=== PATIENT | male | born 1960 | race Caucasian/White ===

== ENCOUNTER 2021-08-20 12:06 | Outpatient (CLI) | payer OTHER, SELFPAY ==
[2021-08-20 19:08] LABS: Hematocrit 47.3 % (42.0-52.0); Hemoglobin 15.6 g/dL (14.0-18.0); Mean Corpuscular Volume 96.9 fl (80-100); Mean Platelet Volume 11.6 fl (7.4-10.4); Platelet Count Result 168 k/mm3 (150-375); Red Blood Count 4.88 M/mm3 (4.6-6.20); Red Cell Distribution Width 13.2 % (11.5-14.5); White Blood Count 6.1 K/mm3 (4.5-10.0)
[2021-08-20 19:29] LABS: Amphetamine Screen Urine Negative (Negative); Barbiturate Screen Urine Negative (Negative); Benzodiazepines Screen Urine Negative (Negative); Cannabinoid Screen Urine Negative (Negative); Cocaine Screen Urine Negative (Negative); Methadone Screen Urine Negative (Negative); Opiate Screen Urine Negative (Negative); Phencyclidine Screen Urine Negative (Negative)
[2021-08-20 20:45] LABS: Alanine Aminotransferase 23 U/L (6-50); Albumin Level 4.4 g/dL (3.5-5.1); Alkaline Phosphatase 57 U/L (38-126); Anion Gap 5 mmol/L (8-16); Aspartate Amino Transferase 28 U/L (17-59); Blood Urea Nitrogen 12 mg/dL (9-20); Calcium 9.2 mg/dL (8.4-10.2); Carbon Dioxide 24 mmol/L (22-30); Chloride 108 mmol/L (98-107); Cholesterol 180 mg/dL (0-200); Estimated Glomerular Filt Rate > 60; Glucose 94 mg/dL (65-110); HDL Direct 63 mg/dL; Potassium 4.9 mmol/L (3.4-5.0); Sodium 137 mmol/L (137-145); Triglycerides 46 mg/dL (<150)
[2021-08-20 20:56] LABS: LDL Cholesterol Direct 106 mg/dL
[2021-08-20 21:16] LABS: Prostate Specific Antigen 1.8 ng/mL (< OR = 4.0)
== END 2021-08-20 12:07 | disposition home or self-care (01) ==
PROVIDERS: PCP Family Medicine; Visit Provider Family Medicine
DX: Z00.00 Encounter for general adult medical examination without abnormal findings (principal); M19.90 Unspecified osteoarthritis, unspecified site; M54.50 Low back pain, unspecified
CPT/HCPCS: 36415; 80053; 80061; 80307; 84153; 85027; G0103

== ENCOUNTER 2021-12-25 14:52 | Outpatient (CLI) | payer BC, OTHER, SELFPAY ==
--- NOTE | ~2021-12-25 | CT_ITS ---
EXAMINATION:CT lung screening DATE: 12/25/2021 15:08 INDICATION: Personal history of nicotine dependence. Current smoker with 40 pack year history. TECHNIQUE: Computed tomography (CT) of the chest was performed without intravenous contrast. Automate d exposure control and iterative reconstruction technique were employed. The dose-length product (DLP ) was 71.43 mGy-cm. COMPARISON: None. FINDINGS: There is mild emphysema. A calcified right lung nodule and calcified mediastinal lymph node s are consistent with old granulomatous disease. There is mild atelectasis in right lower lobe. No pl eural effusion. The heart size is normal. There are coronary artery calcifications. No pericardial ef fusion. There are surgical clips right posterior chest wall where there are rib deformities. There is a hemangioma in T3 vertebral body. There is moderate lower thoracic spondylosis. There is mild chron ic anterior wedging of multiple lower thoracic vertebral bodies. IMPRESSION: 1. Lung-RADS category 1: Negative. Continue annual screening with noncontrast low-dose chest CT in 12 months. Reviewed, dictated and finalized at location A. IMPRESSION: 1. Lung-RADS category 1: Negative. Continue annual screening with noncontrast l ow-dose chest CT in 12 months.
== END 2021-12-25 14:53 | disposition home or self-care (01) ==
PROVIDERS: PCP Family Medicine; Visit Provider Family Medicine
DX: Z12.2 Encounter for screening for malignant neoplasm of respiratory organs (principal); Z87.891 Personal history of nicotine dependence
CPT/HCPCS: 71271

== ENCOUNTER 2023-01-25 10:58 | Outpatient (CLI) | payer OTHER, SELFPAY ==
[2023-01-25 18:40] LABS: Alanine Aminotransferase 41 U/L (6-50); Albumin Level 4.7 g/dL (3.5-5.1); Alkaline Phosphatase 53 U/L (38-126); Anion Gap 7 mmol/L (8-16); Aspartate Amino Transferase 55 U/L (17-59); Bilirubin,Total 0.8 mg/dL (0.2-1.3); Blood Urea Nitrogen 14 mg/dL (9-20); Calcium 10.4 mg/dL (8.4-10.2); Carbon Dioxide 29 mmol/L (22-30); Chloride 102 mmol/L (98-107); Cholesterol 197 mg/dL (0-200); Estimated Glomerular Filt Rate > 60; Glucose 106 mg/dL (65-110); HDL Direct 58 mg/dL; Potassium 4.2 mmol/L (3.4-5.0); Sodium 138 mmol/L (137-145); Triglycerides 57 mg/dL (<150)
[2023-01-25 18:51] LABS: LDL Cholesterol Direct 113 mg/dL
[2023-01-25 19:08] LABS: Prostate Specific Antigen 1.9 ng/mL (< OR = 4.0)
[2023-01-25 19:30] LABS: Basophils Absolute Auto 0.1 K/mm3 (0.0-0.1); Basophils Percent Auto 1.1 % (0.2-1.2); Eosinophils Absolute Auto 0.1 K/mm3 (0-0.3); Eosinophils Percent Auto 2.6 % (0-4.4); Hematocrit 46.2 % (42.0-52.0); Lymphocytes Percent Auto 38.4 % (18.3-44.2); Mean Corpuscular HGB Conc 32.5 g/dl (32-36); Mean Corpuscular Hemoglobin 33.1 pg (26-34); Mean Platelet Volume 12.3 fl (7.4-10.4); Monocytes Absolute Auto 0.4 K/mm3 (0.1-0.6); Monocytes Percent Auto 8.5 % (2.6-8.5); Neutrophils Absolute Auto 2.3 K/mm3 (1.3-6.7); Neutrophils Percent Auto 49.4 % (45.5-73.1); Platelet Count Result 170 k/mm3 (150-375); Red Blood Count 4.53 M/mm3 (4.6-6.20); Red Cell Distribution Width 12.3 % (11.5-14.5); White Blood Count 4.7 K/mm3 (4.5-10.0)
== END 2023-01-25 10:59 | disposition home or self-care (01) ==
PROVIDERS: PCP Family Medicine; Visit Provider Family Medicine
DX: I10 Essential (primary) hypertension (principal); E78.5 Hyperlipidemia, unspecified; F10.10 Alcohol abuse, uncomplicated; Z00.00 Encounter for general adult medical examination without abnormal findings; Z12.5 Encounter for screening for malignant neoplasm of prostate
CPT/HCPCS: 36415; 80053; 80061; 84153; 85025; G0103

== ENCOUNTER 2024-10-15 10:40 | Emergency (ER) | payer OTHER, SELFPAY ==
[2024-10-15 10:48] VITALS: BP 123/91; PULSE 105; RESP 20; TEMP 37; O2SAT 99
--- NOTE | 2024-10-15 10:49 | ED.GENADULT ---
HPI - General Adult General Chief complaint: Skin/Abscess/Foreign Body Stated complaint: Body Pain/Rash/Weak Feeling in Legs Time Seen by Provider: 10/15/24 11:28 Source: patient, RN notes reviewed and old records reviewed Mode of arrival: ambulatory Limitations: no limitations History of Present Illness HPI narrative: 64-year-old male presents to the [facility] with complaints of several weeks of generalized muscle pain, rash, feeling weak in his legs especially the left ankle. Reports that he has seen his primary care provider who did x-rays. Reports lab work done however unsure of results. Patient denies any fevers. Reports symptoms have been going on for several weeks and is gradually getting worse. patient reports that he was at [facility] just prior to arrival and states that he did not want a wait, came to our urgent care hoping for further evaluation, testing and treatment Onset (ago): week(s) Treatments prior to arrival: none Related Data Home Medications ?Medication ?Instructions ?Recorded ?Confirmed ?Last Taken ?Type pravastatin 80 mg tablet 80 mg PO DAILY 08/03/21 02/15/23 Unknown History Allergies Allergy/AdvReac Type Severity Reaction Status Date / Time No Known Allergies Allergy Unverified 02/15/23 07:32 Review of Systems Review of Systems: All systems reviewed & are unremarkable except as noted in HPI and below Constitutional: Constitutional: Reports as per HPI, Reports fatigue, Reports malaise and Reports weakness ENT: Reports system reviewed and no additional complaints, except as documented Cardiovascular: Cardiovascular: Reports no additional cardiovascular complaints, Denies chest pain and Denies dyspnea Respiratory: Respiratory: Reports no additional respiratory complaints, Denies chest congestion, Denies cough and Denies dyspnea Musculoskeletal: Musculoskeletal: Reports as per HPI Integumentary/Breasts: Skin/Breast: Reports as per HPI and Reports rash PMFSH Past Medical History Medical History Arthritis Family History Family History Mother Cancer Ovarian Father Cancer Prostrate Son Cancer Diabetes mellitus Social History Social History Smoking status: Current every day smoker Other substance usage details: Recreational drugs yes Lack of Transportation: No Lack of Food: Never True Current Housing: I Have Housing Concerned About Future Housing: No Difficulty Paying Gas/Electric Bills: No Difficulty Paying for Meds: No Currently Unemployed: No Education: Associate Degree Difficulty w/ Childcare or Family Care: No Living arrangements: with friend(s) Additional occupation/education comments: [employer] Gender identity (if verbalized by the patient): Male Agree to blood products: Yes Comments At the time of my signature, I reviewed and agree with the nursing past medical, surgical, social, and family history. There is no relevant family history pertinent to the patient complaint. Exam Const: General: cooperative, no acute distress, well developed, alert, ill appearing, uncomfortable and well nourished Nutritional Appearance: thin Orientation/consciousness: patient oriented x3 Limitations: no limitations HENMT: Head: normal to inspection Eyes: General: appearance normal, both eyes and all related structures Alignment and Position: alignment normal Neck: Neck: normal visual inspection, full ROM, no lymphadenopathy and no meningeal signs Chest: Chest palpation & inspection: normal inspection of the chest Resp: Effort & Inspection: normal respiratory effort and able to speak in complete sentences Cardio: Rate: tachycardic Skin: General skin exam: rashes Rashes: rashes noted ( Generalized) Neuro: General: patient oriented x3, gait normal, moves all extremities and no meningeal signs Cognition (Neuro): normal cognition Speech: normal speech Gait exam (Neuro): Normal gait present Extrem: General: normal to inspection, full ROM, capillary refill normal and normal gait Psych: Appearance: grossly normal and well kempt Mental Status: mental status grossly normal Speech and movement: Normal speech and movement present and Clear speech present Affect: normal affect Attitude: cooperative Course Course Level of Care: Express Care Visit Vital Signs Vital signs: Vital Signs Temperature 98.6 F 10/15/24 10:48 Pulse Rate 105 H 10/15/24 10:48 Respiratory Rate 20 10/15/24 10:48 Blood Pressure 123/91 H 10/15/24 10:48 Pulse Oximetry 99 10/15/24 10:48 Oxygen Delivery Room Air 10/15/24 10:48 Temperature 98.6 F 10/15/24 10:48 Pulse Rate 105 H 10/15/24 10:48 Respiratory Rate 20 10/15/24 10:48 Blood Pressure 123/91 H 10/15/24 10:48 Pulse Oximetry 99 10/15/24 10:48 Oxygen Delivery Room Air 10/15/24 10:48 Reviewed Medical Decision Making MDM Narrative Medical decision making narrative: patient sitting in exam room. Patient is nontoxic but appears uncomfortable. Vitals are stable. Patient presents with several weeks of generalized muscle pain, weakness as well as a rash that covers his body. Concerns for multiple issues with this patient, unable to see previous labs or x-rays. Discussed transfer to ER which patient states he will think about it discussed we are not able to do any type of lab work. Patient got up and walked out Discharge instructions reviewed with patient, as well as provided in writing per nursing staff. The instructions also include specific and strict return/GO TO THE ER as well as f/u information. All questions have been answered, and the patient deny any further questions with discharge and discharge plan. Some parts of this dictation were generated by voice recognition software and may contain typographical and/or grammatical inaccuracies. Differential Diagnosis Differential Diagnosis: tick-borne illness, viral, kidney dysfunction, liver dysfunction Medical Records Medical records reviewed: Yes I reviewed the external patient's medical records. Vital Signs Vital Signs: Vital Signs Temperature 98.6 F 10/15/24 10:48 Pulse Rate 105 H 10/15/24 10:48 Respiratory Rate 20 10/15/24 10:48 Blood Pressure 123/91 H 10/15/24 10:48 Pulse Oximetry 99 10/15/24 10:48 Oxygen Delivery Room Air 10/15/24 10:48 Temperature 98.6 F 10/15/24 10:48 Pulse Rate 105 H 10/15/24 10:48 Respiratory Rate 20 10/15/24 10:48 Blood Pressure 123/91 H 10/15/24 10:48 Pulse Oximetry 99 10/15/24 10:48 Oxygen Delivery Room Air 10/15/24 10:48 Reviewed Lab Data Lab results reviewed: Yes I reviewed the patient's lab results. Labs: Reviewed Critical Care Time Critical Care Time Critical Care Time: No Discharge Plan Discharge Clinical Impression: Weakness, Rash Patient Disposition: Elopement After Seen by Prov Patient Language: Mongolian Prescriptions: No Action pravastatin 80 mg tablet 80 mg PO DAILY tramadol 50 mg tablet 50 mg PO Q6H PRN (Reason: pain) Qty: 60 0RF tadalafil [Cialis] 10 mg tablet 10 mg PO DAILY PRN (Reason: sexual activity) Qty: 30 1RF Rx Instructions: administer approximately 30min before sexual activity; do not use more than 1 dose per 24hrs albuterol sulfate 90 mcg/actuation HFA aerosol inhaler 1 inh inhalation Q4H PRN (Reason: shortness of breath or wheezing) Qty: 8.5 1RF (DME) BreatheRite Spacer-Mask,Adult Spacer See Rx Instructions .Route Qty: 1 0RF Rx Instructions: As directed valsartan-hydrochlorothiazide 160-12.5 mg tablet 1 tablet PO DAILY Qty: 90 1RF Advair HFA 230-21 mcg/actuation HFA aerosol inhaler See Rx Instructions .ROUTE .COMPLEX Qty: 12 1RF Dose Instruction: 2 PUFF INHALED TWICE A DAY ADMINISTER WITH SPACER Rx Instructions: 2 PUFF INHALED TWICE A DAY ADMINISTER WITH SPACER Follow-up/Referrals: UNKNOWN,DOCTOR [Primary Care Provider] -
--- OUTSIDE RECORDS SUMMARY | 2024-10-15 10:52 | XMS_ITS | Clinical Summary ---
Author Organization [facility] Address [address] [place] [address] Phone Care Team Providers Care Intermediate Accountant Name Role Phone Unavailable Primary Care Provider Unavailabl e Allergies No known active allergies Medications Blood Pressure KitIndications:Hype rtension, unspecified type 1 Kit by Does not apply route 2 times daily. 1 Each 8 Active rOPINIRole (REQUIP) 0.5 MG Tablet Take 1 Tab by mouth nightly. 90 Tab 2 0 Active cetirizine (ZyrTEC) 10 MG TabletIndications:C hronic maxillary sinusitis Take 1 Tablet by mouth daily. 90 Tablet 3 1 Active pravastatin (PRAVACHOL) 80 MG TabletIndications:H ypertension, unspecified type,Hyperlipidemia , unspecified hyperlipidemia type TAKE 1 TABLET BY MOUTH EVERY DAY 90 Tablet 1 1 Active ibuprofen (MOTRIN) 600 MG Tablet Take 1 Tablet by mouth every 6 hours as needed for Moderate or more severe pain or Fever. 60 Tablet 1 Active traMADol (ULTRAM) 50 MG TabletIndications:C hronic midline low back pain without sciatica Take 1 Tablet by mouth every 6 hours as needed for Moderate or more severe pain. 60 Tablet 1 Active valsartan (DIOVAN) 80 MG TabletIndications:H ypertension, unspecified type TAKE 1 TABLET BY MOUTH EVERY DAY 90 Tablet 1 2 Active Active Problems No known active problems Immunizations Immunization Administration Dates Next Due Td (Adult) 07/29/2009 Family History Medical History Relation Name Comments Heart Attack Father Cancer Mother Relation Name Status Comments Father Mother Social History Tobacco Use Types Packs/Day Years Used Date Smoking Tobacco: Every Day Cigarettes Smokeless Tobacco: Never Tobacco Cessation:Ready to Q uit: No; Counseling Given: Yes Alcohol Use Standard Drinks/Week Comments Yes 4 (1 standard drink = 0.6 oz pur e alcohol) daily PHQ-2 Answer Date Recorded Total Score - Questions 1-9 0 05/2020 Sex and Gender Information Value Date Recorded Sex Assigned at Not on file Legal Sex Male 12:16 AM CDT Gender Identity Not on file Sexual Orientation Not on file Last Filed Vital Signs Vital Sign Reading Time Taken Comments Blood Pressure 124/77 03/09/2021 2:30 PM DRIVER LICENSE EXAMINER Pulse 85 03/09/2021 2:30 PM DRIVER LICENSE EXAMINER Temperature 36.4 C (97.6 F) 03/09/2021 1:30 PM DRIVER LICENSE EXAMINER Respiratory Rate 16 03/09/2021 1:32 PM DRIVER LICENSE EXAMINER Oxygen Saturation 95% 03/09/2021 2:30 PM DRIVER LICENSE EXAMINER Inhaled Oxygen Concentration - - Weight 68 kg (150 lb) 03/09/2021 1:30 PM DRIVER LICENSE EXAMINER Height 175.3 cm (5' 9) 03/09/2021 1:30 PM DRIVER LICENSE EXAMINER Body Mass Index 22.15 03/09/2021 1:30 PM DRIVER LICENSE EXAMINER Plan of Treatment Health Maintenance Due Date Last Done Comments Hepatitis C Virus (HCV) Screening 1960 TdaP Immunization 1960 Cologuard 01/04/2005 Colonoscopy 01/04/2005 Colorectal Cancer Screening 01/04/2005 Immunochemical Fecal Occult Blood 01/04/2005 Pneumococcal Immunization (5 0+ years) (1 of 1 - PCV) 01/04/2010 Zoster Immunization (1 of 2) 01/04/2010 SARS-COV-2 Immunization (1 - 2023- season) 2023 Influenza Immunization (Seas on Ended) 2024 Respiratory Syncytial Virus (RSV) Immunization (Adult) (1 - 1-dose 75+ series) 01/04/2035 PSA Discussion Completed 10/16/2020 Hepatitis B Immunization Aged Out No longer eligible based on patient's age to complete this topic Human Papillomavirus (HPV) Immunization Aged Out No longer eligible b ased on patient's age to complete this topic Meningococcal Immunization (ACWY) Aged Out No longer eligible based on patient's age to complete this topic Rotavirus Immunization Aged Out No lo nger eligible based on patient's age to complete this topic Procedures Procedure Name Priority Date/Time Associated Diagnosis Comments PSA SCREEN Today 10/16/2020 1:44 PM CDT Screening for prostate cancer from Last 3 Months or Most Recently Relevant to Health Maintenance Results * PSA SCREEN (10/16/2020 1:44 PM CDT) PSA SCREEN, TOTAL 1.79 <=4.00 ng/mL 10/16/2020 2:37 PM CDT [facility] Blood Venipuncture / Unknown 10/16/2020 1:44 PM CDT 10/16/2020 2:08 PM CDT Narrative [facility] - 10/16/2020 2:37 PM CDT PSA NOTE: The PSA value should be used in conjunction with information available from clinical evaluation and other diagnostic procedures. Luis Manuel Kendrick MD CHEMISTRY ORDERABLES Final Re sult [facility] [address] [place] [address] from Last 3 Months or Most Recently Relevant to Health Maintenance Insurance [employer]
--- OUTSIDE RECORDS SUMMARY | 2024-10-15 10:52 | XMS_ITS | Encounter Summary ---
Author Organization [facility] Address [address] [place] [address] Phone Care Team Providers Care Mechanical Press Operator Name Role Phone Luis Manuel Kendrick MD Primary Care Provider [phone] Reason for Visit * Reason Onset Date Comments Prior Authorization 02/24/2021 Encounter Details Date Type Department Care Team (Late st Contact Info) Description 02/24/2021 Telephone [facility] Outpatient [address] [place] [address] Luis Manuel Kendrick MD [address] [address] Prior Authorization Social History Tobacco Use Types Packs/Day Years Used Date Smoking Tobacco: Every Day Cigarettes Smokeless Tobacco: Never Alcohol Use Standard Drinks/Week Comments Yes 0 (1 standard drink = 0.6 oz pur e alcohol) Occasional PHQ-2 Answer Date Recorded Total Score - Questions 1-9 0 05/2020 Sex and Gender Information Value Date Recorded Sex Assigned at Not on file Legal Sex Male 12:16 AM CDT Gender Identity Not on file Sexual Orientation Not on file COVID-19 Exposure Response Date Recorded In the last month, have you been in contact with someone who was confirmed or suspected to have Coronavirus / COVID-19? No / Unsure 02/16/2021 3:25 PM ACQUISITION CONSULTANT documented as of this encounter Miscellaneous Notes * Telephone Encounter - [place] - 02/24/2021 3:20 PM CST Auth Denied-P2P offered Ordering Provider: Internal Appointment Info: Clinic: [facility] Provider: MARIPOSA Juárez Date/Time: Tuesday 10:30 AM Payor + Plan: [employer] - [employer] CPT/Test: 82708 and 83323 Authorization denied through: [employer] Reason for denial: [id number]- Based on [employer] Head [facility] Guidelines Section(s): HD 23.1 Dizziness/Vertigo and 1.0 General Guidelines, we cannot approve this request. Your records show that you have dizzy spells. The request cannot be approved because: We did not receive results of a full workup for your signs and/or symptoms that showed a reason therequested study is needed. A full workup should include the following information. -Details about your symptoms. -Results of testing of your blood pressure while sitting, lying, and standing (orthostatic blood pressure). -Results of hearing tests. -Results of gait (your pattern of walking) testing.- Results of positional testing (Kent-Hallpike maneuver). -Results of eye motion testing to check fornystagmus (fast eye motions that you cannot control). - Results of testing for a head thrust sign (test to see if you can keep your eyes locked on an item after moving your head abruptly). -Results oftesting to see if your eyes move upward but apart (in opposite directions). -Results of vision testing. Your records do not show documentation of physical exam results that included a detailed nervous system exam suggestive of SNOW RANGER (central nervous system) disease. Your nervous system consists of a network of nerve cells and fibers that send nerve messages between parts of your body. SNOW RANGER is the part of your nervous system that involves your spinal cord and brain. [address]- Based on [employer] Spine Imaging Guidelines Section(s): SP 15.1 Greater than Six Months Post-Operative and 1.0 General Guidelines, we cannot approve this request. Your records show that you have had a repair (surgery) to treat a problem with your spine. The request cannot be approved because: You must have severe pain (at least 9 out of 10 on a pain scale) going down a limb(s). Your records do not show that you have significant loss of function at home or at work. Your records do not show that you have pain that did not respond to at least seven days of doctor prescribed treatment. One of the following must be met. -Your doctor is planning an injection into the space just outsidethe membrane that surrounds your spinal cord and spinal fluid. -Your doctor is planning an urgent surgery to your spine. -You need an urgent referral or consult from a doctor that treats spine problems (metalworking specialist). Your records do not show physical exam results that show a reason this study is needed. This exam should include a detailed nervous system (a network of nerves that send nerve messages between parts of your body) exam. Your records did not include a detailed history that shows this study is needed. You must show that you failed to improve following treatment ordered by your doctor. There is no record of follow-up contact (in person, by phone, by mail, or by messaging) with your doctor after completing treatment that failed to improve your symptoms. Add'l Steps Taken (Pt Notified, Reached out to Provider, etc.): Sent telephone encounter Peer to Peer review offered by Payer: Yes Peer to Peer review expires: 02/27/21 Case #: [id number] Phone #: [phone] Physician: Luis Manuel Louie. Notified? Yes Notification Made to Patient: Yes Call type: Outbound Contact Made: Left Message Reason for Call: Authorization Status/Issue Pt called back and cancelled appts ISITION CONSULTANT documented in this encounter Plan of Treatment Not on file documented as of this encounter Visit Diagnoses Not on filedocumented in this encounter Additional Health Concerns Assessment Noted Time PHQ-9 Depression Total Score: 0 02/11/20 21 5:00 PM CDT documented as of this encounter Care Teams Mechanical Press Operator Relationship Specialty Start Date End Date Luis Manuel Kendrick MD #[address] [address] PCP - General Family Medicine 06/19/18 05/28/24 documented as of this encounter
--- OUTSIDE RECORDS SUMMARY | 2024-10-15 10:52 | XMS_ITS | Encounter Summary ---
Author Organization [facility] Address [address] [place] [place] [address] Phone Care Team Providers Care News Copy Editor Name Role Phone Luis Manuel Kendrick MD Primary Care Provider [phone] Reason for Visit * Reason Comments Medication Refill Encounter Details Date Type Department Care Team (Late st Contact Info) Description 08/24/2020 [facility] [place] [id number] Luisa Hughes APRN, STUDENT MINISTRY PASTOR [address] [address] Medication Refill Social History Tobacco Use Types Packs/Day Years Used Date Smoking Tobacco: Every Day Cigarettes Smokeless Tobacco: Never PHQ-2 Answer Date Recorded Total Score - Questions 1-9 0 /0 11/2020 Sex and Gender Information Value Date Recorded Sex Assigned at Not on file Legal Sex Male 12:16 AM CDT Gender Identity Not on file Sexual Orientation Not on file documented as of this encounter Miscellaneous Notes * Telephone Encounter - Gisela May RN - 08/25/2020 12:33 PM CDT Medication failed the protocol, provider to review and approve the medication order if appropriate. Requested Prescriptions Pending Prescriptions Disp Refills pravastatin (PRAVACHOL) 80 MG Tablet [Pharmacy Med Name: PRAVASTATIN SODIUM 80 MG TAB] 90 Tablet 1 Sig: TAKE 1 TABLET BY MOUTH EVERY DAY Hmg CoA Reductase Inhibitors Protocol Failed - 08/24/2020 9:13 AM Failed - Lipid panel in past 12 months LDL Date Value Ref Range Status 12/19/2018 83 5 - 130 mg/dL Final HDL CHOLESTEROL Date Value Ref Range Status 12/19/2018 51.3 >40 mg/dL Final CHOLESTEROL Date Value Ref Range Status 12/19/2018 149 <=200 mg/dL Final TRIGLYCERIDES Date Value Ref Range Status 12/19/2018 75 <150 mg/dL Final VLDL Date Value Ref Range Status 12/19/2018 15 5 - 55 mg/dL Final CHOL/HDL RATIO Date Value Ref Range Status 12/19/2018 2.9 0.0 - 4.4 Final NON-HDL CHOLESTEROL Date Value Ref Range Status 12/19/2018 97.7 <130 mg/dL Final Passed - Visit with relevant provider in past 12 months or upcoming 90 days Recent Visits Date Type Provider Dept 05/19/20 Office Visit Luisa Hughes APN, STUDENT MINISTRY PASTOR [facility] 03/18/20 Office Visit Luis Manuel Kendrick MD [facility] 09/11/19 Office Visit Luis Manuel Kendrick MD [facility] Showing recent visits within past 365 days and meeting all other requirements Future Appointments No visits were found meeting these conditions. Showing future appointments within next 90 days and meeting all other requirements valsartan (DIOVAN) 80 MG Tablet [Pharmacy Med Name: VALSARTAN 80 MG TABLET] 90 Tablet 1 Sig: TAKE 1 TABLET BY MOUTH EVERY DAY ARB Protocol Failed - 08/24/2020 9:13 AM Failed - Normal serum creatinine on file within the past year CREATININE, BLOOD Date Value Ref Range Status 12/19/2018 0.84 0.80 - 1.30 mg/dL Final Failed - Normal serum potassium on file within the past year POTASSIUM Date Value Ref Range Status 12/19/2018 4.5 3.5 - 5.1 mmol/L Final Passed - BP on record in the past year Clinician-entered: BP Readings from Last 3 Encounters: 05/19/20 118/64 03/18/20 120/84 09/11/19 118/78 Patient-entered: No data recorded Passed - Visit with relevant provider in past year or upcoming 90 days Recent Visits Date Type Provider Dept 05/19/20 Office Visit Luisa Hughes APN, STUDENT MINISTRY PASTOR [facility] 03/18/20 Office Visit Luis Manuel Kendrick MD [facility] 09/11/19 Office Visit Luis Manuel Kendrick MD [facility] Showing recent visits within past 365 days and meeting all other requirements Future Appointments No visits were found meeting these conditions. Showing future appointments within next 90 days and meeting all other requirements documented in this encounter Plan of Treatment Not on file documented as of this encounter Visit Diagnoses Diagnosis Hypertension, unspecified type Hyperlipidemia, unspecified hyperlipidemia type documented in this encounter Additional Health Concerns Assessment Noted Time PHQ-9 Depression Total Score: 0 05/19/19 21 2:07 PM GREASE RENDERER documented as of this encounter Care Teams News Copy Editor Relationship Specialty Start Date End Date Luis Manuel Kendrick MD #[address] [address] PCP - General Family Medicine 06/19/18 05/28/24 documented as of this encounter
--- OUTSIDE RECORDS SUMMARY | 2024-10-15 10:52 | XMS_ITS | Clinical Summary ---
Author Organization [facility] [employer] Address [address] 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 This disclosure is being madepursuant to the Care Everywhere program and may not contain all information available regarding this patient. Last updated 17.[facility] [employer] Allergies No known active allergies Medications * Be aware that medications may not be up to date on this document. Alwaysverify current medications with the patient. pravastatin (PRAVACHOL) 80 MG tablet Take 80 mg by mouth 04/10/2018 Active valsartan (DIOVAN) 80 MG tablet Take 80 mg by mouth 04/10/2018 Active Blood Pressure KIT 04/10/2018 Active Social History Tobacco Use Types Packs/Day Years Used Date Smoking Tobacco: Every Day Cigarettes 1 40 Smokeless Tobacco: Never Tobacco Cessation:Ready to Q uit: No; Counseling Given: Yes Sex and Gender Information Value Date Recorded Sex Assigned at Not on file Legal Sex Male 4:32 PM CDT Gender Identity Not on file Sexual Orientation Not on file Last Filed Vital Signs Vital Sign Reading Time Taken Comments Blood Pressure 132/80 06/30/2019 11:01 AM CDT Pulse 78 06/30/2019 11:01 AM CDT Temperature 36.7 C (98.1 F) 06/30/2019 11:01 AM CDT Respiratory Rate 16 06/30/2019 11:01 AM CDT Oxygen Saturation 98% 06/30/2019 11:01 AM CDT Inhaled Oxygen Concentration - - Weight 65.8 kg (145 lb) 06/30/2019 11:01 AM CDT Height 170.2 cm (5' 7) 06/30/2019 11:01 AM CDT Body Mass Index 22.71 06/30/2019 11:01 AM CDT Plan of Treatment Health Maintenance Due Date Last Done Comments COLOGUARD (AGES 45-75) - COL ON CA SCREENING 1960 COLON MONITORING 1960 COLONOSCOPY - COLON CA SCREENING 1960 CT COLONOGRAPHY - COLON CA SCREENING 1960 Colorectal Cancer Screening 1960 FIT - COLON CA SCREENING 1960 FLEX SIG - COLON CA SCREENING 1960 HIV SCREENING 01/04/1975 HEPATITIS C SCREENING 12/31/1977 DTAP/TDAP/TD VACCINES (1 - Tdap) 01/04/1979 LUNG CANCER SCREENING 01/04/2010 PNEUMOCOCCAL VACCINE 50+ (1 of 1 - PCV) 01/04/2010 ZOSTER VACCINE (1 of 2) 01/04/2010 COVID-19 VACCINE (1 - 2023-2 5 season) 2023 DEPRESSION SCREENING 04/11/2024 INFLUENZA VACCINE (#1) 2024 Respiratory Syncytial Virus (RSV) Vaccine Pt: or over 60 yrs (1 - 1-dose 75+ series) 01/04/2035 HEPATITIS B VACCINE Aged Out No longe r eligible based on patient's age to complete this topic HIB VACCINE Aged Out No longer eligi ble based on patient's age to complete this topic HPV VACCINE Aged Out No longer eligi ble based on patient's age to complete this topic MENINGOCOCCAL (Group B) VACC INE SHARED DECISION-MAKING Aged Out No longer eligibl e based on patient's age to complete this topic MENINGOCOCCAL GROUPS A/C/Y/W VACCINE Aged Out No longer eligible b ased on patient's age to complete this topic Insurance [facility]
--- OUTSIDE RECORDS SUMMARY | 2024-10-15 10:52 | XMS_ITS | Clinical Summary ---
Author Organization [address] Address [address] [place] [id number] Care Team Providers Care Endoscopy Support Specialist Name Role Phone Jesus Kendrick MD Primary Care Provider [phone] Allergies No known active allergies Medications naproxen (NAPROSYN) 500 mg tablet Take 1 tablet (500 mg total) by mouth 2 (two) times a day as needed for pain Take with food. 30 tablet 01/21/2021 Active Active Problems Problem Noted Date Diagnosed Date Acute sinusitis 06/03/2014 Overview (07/16/2016): Acute sinusitis Benign hypertension 07/20/2010 Overview (07/16/2016): Benign Hypertension Cluster headaches 07/29/2009 Overview (07/16/2016): Cluster headache Immunizations Immunization Administration Dates Next Due TD Preservative Free 07/29/2009 Surgical History Surgery Date Site/Laterality Comments OTHER SURGICAL HISTORY 1991 Disc displacement: Lumbar surgery (replaced with bone from hip LUMBAR SPINE SURGERY Surgery, lumbar spine OTHER SURGICAL HISTORY nasal polyps removed Medical History Medical History Date Comments Hx Other Medical 1991 Disc displaceme nt Hypertension Hypertension Hx Other Medical Headache, migra ine Gastroesophageal reflux disease GERD Hyperlipidemia Family History Medical History Relation Name Comments Heart attack Father Myocardial infa rction; Cause of : Myocardial infarction Other Father PAD-gangrene; Glaucoma Mother Glaucoma; Uterine cancer Mother Cancer -uteri ne; Relation Name Status Comments Father (Age 75) Mother Social History Tobacco Use Types Packs/Day Years Used Date Smoking Tobacco: Heavy Smoker Comments:Smoking History Pac ks/day: 0.5 Packs Alcohol Use Standard Drinks/Week Comments No 0 (1 standard drink = 0.6 oz pur e alcohol) Sex and Gender Information Value Date Recorded Sex Assigned at Not on file 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 Gender Identity Not on file Sexual Orientation Not on file Obstetrics History Last Filed Vital Signs Vital Sign Reading Time Taken Comments Blood Pressure 121/70 01/21/2021 11:17 AM CDT Pulse 65 01/21/2021 11:17 AM CDT Temperature 36.8 C (98.2 F) 01/21/2021 11:17 AM CDT Respiratory Rate 18 01/21/2021 11:17 AM CDT Oxygen Saturation 96% 01/21/2021 11:17 AM CDT Inhaled Oxygen Concentration - - Weight 65.8 kg (145 lb) 01/21/2021 11:17 AM CDT Height 170.2 cm (5' 7) 01/21/2021 11:17 AM CDT Body Mass Index 22.71 01/21/2021 11:17 AM CDT Plan of Treatment Not on file Insurance [facility] H[facility] Care Teams Endoscopy Support Specialist Relationship Specialty Start Date End Date Jesus Kendrick MD [address] [id number] [place] [address] PCP - General 01/21/21
--- OUTSIDE RECORDS SUMMARY | 2024-10-15 10:52 | XMS_ITS | Referral Summary ---
Author Organization [facility] [id number] [facility] Address [address] [place] [id number] Care Team Providers Care Rubber Mill Operator Name Role Phone Jesus Kendrick MD Primary Care Provider [phone] Allergies No known active allergies Medications naproxen [...] Dates Next Due TD Preservative Free 07/29/2009 Social History Tobacco Use Types Packs/Day Years Used Date Smoking Tobacco: Heavy Smoker Comments:Smoking History Pac ks/day: 0.5 Packs Alcohol Use Standard Drinks/Week Comments No 0 (1 standard drink = 0.6 oz pur e alcohol) Sex and Gender Information Value Date Recorded Sex Assigned at Not on file 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
--- OUTSIDE RECORDS SUMMARY | 2024-10-15 10:52 | XMS_ITS | Encounter Summary ---
Author Organization [facility] Address [address] [place] [address] Phone Care Team Providers Care Entry Level Electrician Name Role Phone Luis Manuel Kendrick MD Primary Care Provider [phone] Reason for Visit * Reason Comments Medication Refill Encounter Details Date Type Department Care Team (Late st Contact Info) Description 01/12/2021 Refill [facility] [address] [place] [address] Luis Manuel Kendrick MD [address] [address] Medication Refill Social History Tobacco Use Types Packs/Day Years Used Date Smoking Tobacco: Every Day Cigarettes Smokeless Tobacco: Never Alcohol Use Standard Drinks/Week Comments Yes 0 (1 standard drink = 0.6 oz pur e alcohol) Occasional PHQ-2 Answer Date Recorded Total Score - Questions 1-9 0 11/2020 Sex and Gender Information Value Date Recorded Sex Assigned at Not on file Legal Sex Male 12:16 AM CDT Gender Identity Not on file Sexual Orientation Not on file documented as of this encounter Miscellaneous Notes * Telephone Encounter - Luis Manuel Kendrick MD - 01/12/2021 10:02 AM CDT Prescription approved. Please call in * Telephone Encounter - Latoya Carmona RN - 01/12/2021 10:01 AM CDT Medication failed the protocol, provider to review and approve the medication order if appropriate. Requested Prescriptions Pending Prescriptions Disp Refills escitalopram (LEXAPRO) 10 MG Tablet [Pharmacy Med Name: ESCITALOPRAM 10 MG TABLET] 90 Tablet 0 Sig: TAKE 1 TABLET BY MOUTH EVERY DAY [facility] (6 Month Refill Only) Protocol Failed - 01/12/2021 12:35 AM Failed - Patient has established therapy with [facility] for at least 6 months Failed - Has an encounter in the past 6 months with a depression, anxiety, adjustment disorder, OCD, or PTSD visit diagnosis Passed - Visit with relevant provider in past 6 months or upcoming 90 days Recent Visits Date Type Provider Dept 10/16/20 Office Visit [facility] 09[facility]12[facility]20 Office Visit Dee Rosenberg PAC [facility] Showing recent visits within past 182 days and meeting all other requirements Future [...] Total Score: 0 05/19/19 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
== END 2024-10-15 11:45 | disposition left against medical advice (07) ==
PROVIDERS: Emergency Provider Nurse Practitioner
DX: R53.1 Weakness (principal); R21 Rash and other nonspecific skin eruption; F17.200 Nicotine dependence, unspecified, uncomplicated; M19.90 Unspecified osteoarthritis, unspecified site
CPT/HCPCS: 99211; G0463